=== PATIENT | male | born 1960 | race Caucasian/White ===

== ENCOUNTER 2017-06-23 11:10 | Emergency (ER) | payer MEDICAID ==
--- NOTE | 2017-06-23 11:22 | Emergency Department Record ---
History of Present Illness - General Chief Complaint: Chest Pain Stated Complaint: CHEST AND BACK PAIN Time Seen by Provider: 06/23/17 11:22 Source: Patient Mode of Arrival: Ambulatory Limitations: No limitations - History of Present Illness Initial Comments: The patient is here due to having the acute onset of chest and back pain about 30 minutes prior to presenting to the ER. He describes the pain as a heaviness with radiation to the back between the shoulder blades. He has had mild nausea, dyspnea, and sweating. The patient states he has no hx of similar issues or problems. The patient does have a hx of heavy tobacco use but no HTN, DM or high cholesterol. MD Complaint: Chest pain Onset/Timin -: Minutes(s) Onset: During exertion Pain Location: Substernal Severity: Moderate Severity scale (1-10): 4 Quality: Aching, Dull, Heaviness, Sharp Consistency: Constant Improves With: Rest Treatments Prior to Arrival: None - Related Data Allergies Allergy/AdvReac Type Severity Reaction Status Date / Time No Known Drug Allergies Allergy Verified 06/23/17 11:20 Travel Screening - Travel/Exposure Within Last 30 Days Have you traveled within the last 30 days?: No - Travel/Exposure Within Last Year Have you traveled outside the [place] in the last year?: No - Additonal Travel Details Have you been exposed to anyone with a communicable illness?: No - Travel Symptoms Symptom Screening: None Past Medical History - SOCIAL HISTORY Smoking Status: Current every day smoker Alcohol Use: Rare Drug Use: Occasional Drug Use Detail:: Marijuana - RESPIRATORY Hx Respiratory Disorders: No - CARDIOVASCULAR Hx Cardio Disorders: No - NEURO Hx Neuro Disorders: No - GI Hx GI Disorders: No - Hx Genitourinary Disorders: No - ENDOCRINE Hx Endocrine Disorders: No - MUSCULOSKELETAL Hx Musculoskeletal Disorders: No - PSYCH Hx Psych Problems: No - HEMATOLOGY/ONCOLOGY Hx Hematology/Oncology Disorders: No Family Medical History Any Significant Family History?: Yes Physical Exam - General General Appearance: Alert, Oriented x3, Cooperative, Mild distress - Head Head exam: Atraumatic, Normocephalic, Normal inspection - Eye Eye exam: Normal appearance, PERRL - ENT Throat exam: Normal inspection. negative: Tonsillar erythema, Tonsillar exudate - Neck Neck exam: Normal inspection, Full ROM. negative: Tenderness - Respiratory Respiratory exam: Normal lung sounds bilaterally. negative: Respiratory distress - Cardiovascular Cardiovascular Exam: Regular rate, Normal rhythm, Normal heart sounds - GI/Abdominal GI/Abdominal exam: Soft, Normal bowel sounds. negative: Tenderness - Extremities Extremities exam: Normal inspection, Full ROM, Normal capillary refill, Other ( radial pulses 2+ and equal bilaterally.). negative: Tenderness Course Vital Signs 06/23/17 11:13 Pulse Rate 64 Respiratory 18 Rate Blood Pressure 118/78 Pulse Ox 100 - Reevaluation(s) Reevaluation #1: I did inform the patient he is having an inferior wall ID and he states he would like to go to [facility] for treatment. 06/23/17 11:31 Reevaluation #2: The patient is doing OK at this time. I did discuss the case with Dr. Lockhart at [facility] and he does accept the patient. He would like him to go to the ER first and then the medical laboratory technologist. 06/23/17 11:37 Reevaluation #3: I did discuss the case with Dr. Butler in the ER at [facility] and she does accept him to [facility] first. 06/23/17 11:42 Medical Decision Making - Data Complexity MDM Data: Labs Ordered and/or Reviewed, X-Ray Ordered and/or Reviewed, EKG Ordered and/or Reviewed - Lab Data Result diagrams: 06/23/17 11:30 06/23/17 11:30 - EKG Data EKG: ST Elevation ID (STEMI) (Inferior wall.) - Radiology Data Radiology results: Report reviewed (CXR: No infiltrates, poss pulm vasc congestion) Disposition Disposition: Transfer Clinical Impression: Acute myocardial infarction Qualifiers: Myocardial infarction ST status: ST elevation myocardial infarction Involved coronary artery: right coronary artery Qualified Code(s): I21.11 - ST elevation (STEMI) myocardial infarction involving right coronary artery Disposition: Acute Care Hospital Transfer Transfer To: [facility]. Reason For Transfer: Acute ID. Accepting Physician: Luke Time Discussed w/Accepting Physician: 11:43 Condition: (2) Stable Forms: Patient Portal Access Time of Disposition: 11:43 Quality - Quality Measures Quality Measures: N/A - Blood Pressure Screening View Details: Yes Does Patient Have Any of the Following: No Blood Pressure Classification: Normal BP Reading Systolic Measurement: 118 Diastolic Measurement: 78 Screening for High Blood Pressure: < Normal BP, F/U Not Required > [G8783]
[2017-06-23] MEDS ORDERED: ASPIRIN 81 MG CHEWABLE TABLET PO ONE (11:23)
[2017-06-23] MEDS ORDERED: MORPHINE SULFATE 5 MG/ML PFS IVP ONE ×2 (11:23→11:50)
[2017-06-23] MEDS ORDERED: HEPARIN SODIUM 1000 UNIT/1 ML 10ML VIAL IVP ONE (11:24)
[2017-06-23] MEDS ORDERED: 0.9 % SODIUM CHLORIDE 1,000 ML BAG IV ONE (11:29)
[2017-06-23 11:41] LABS: BASO % 0.3 % (0-6); EOS % 1.1 % (0-6); GRAN % 64.6 % (47-80); HEMATOCRIT 44.6 % (42.0-52.0); HEMOGLOBIN 15.9 gm/dl (14.0-18.0); LYMPH % 25.7 % (16-45); MEAN CELL VOLUME 91.4 fl (81-97); MEAN CORPUSCULAR HEMOGLOBIN 32.6 pg (27-33); MEAN CORPUSCULAR HGB CONC 35.7 g/dl (32-36); MEAN PLATELET VOLUME 9.4 fl (7.4-10.4); MONO % 8.3 % (0-9); PLATELET COUNT 387 K/uL (130-400); RED BLOOD COUNT 4.88 M/uL (4.40-5.70); RED CELL DISTRIBUTION WIDTH 13.1 % (11.5-14.5); WHITE BLOOD COUNT W/O DIFF 12.4 K/uL (4.2-12.2)
[2017-06-23] MEDS ORDERED: NITROGLYCERIN/D5W 50 MG/250 ML ML IV SCH (11:45)
[2017-06-23] MEDS ORDERED: HEPARIN SODIUM/D5W 25,000 UNITS/500 ML BAG IV SCH (11:45)
[2017-06-23 11:55] LABS: INR 0.95; PARTIAL THROMBOPLASTIN TIME 25.2 SECONDS (24.5-39.1); PROTHROMBIN TIME (PATIENT) 10.3 SECONDS (9.5-12.1)
[2017-06-23 12:12] LABS: BLOOD UREA NITROGEN 17 mg/dL (6-20); CREATININE 0.8 mg/dL (0.7-1.2); EST GLOMERULAR FILTRATION RATE > 60 mL/min; GLUCOSE,RANDOM 136 mg/dL (74-109)
[2017-06-23 12:17] LABS: CKMB 10.4 ng/mL (<6.73)
[2017-06-23 12:25] LABS: CREATINE PHOSPHOKINASE 100 U/L (39-308)
--- NOTE | 2017-06-24 18:17 | RADIOLOGY REPORT ---
EXAM: CHEST AP or PA ONLY HISTORY: DIFFICULTY IN BREATHING. TECHNIQUE: A portable AP upright view of the chest was performed. FINDINGS: Heart size is normal. There is mild pulmonary vascular congestion. No infiltrate or pleural effusion. IMPRESSION: MILD PULMONARY VASCULAR CONGESTION. OTHERWISE NEGATIVE. JOB NUMBER: [id number] MTDD
== END 2017-06-23 11:51 | disposition short-term general hospital (02) ==
LOC: ER 11:10
DX: I21.11 ST elevation (STEMI) myocardial infarction involving right coronary artery (principal); R06.00 Dyspnea, unspecified; R11.0 Nausea; F17.210 Nicotine dependence, cigarettes, uncomplicated
CPT/HCPCS: 99285 ×2; 96374; 96375; 82550; 85025; 85730; 85610; 82553; 80048; 84484; 71010; 93005; 93010; J2270; J7030

== ENCOUNTER 2018-02-23 12:50 | Emergency (ER) | payer MEDICAID ==
--- NOTE | 2018-02-23 13:26 | Emergency Department Record ---
History of Present Illness - General Chief complaint: Nausea, Vomiting, Diarrhea Stated complaint: VOMITING, PIMARY SENT OVER FOR DEHYDRATION Time Seen by Provider: 02/23/18 13:24 Source: Patient Mode of Arrival: Ambulatory Limitations: No limitations - History of Present Illness Initial comments: The patient is here due to a 3 day hx of weakness, nausea, fatigue and body aches. He did have a fever last evening per his . He denies any Cp, SOB, WILLY , or sweating. The patient has been outside fishing on [place] for the last 2 days in the extreme heat and feels he may have heat exhaustion. There has been no vomiting, diarrhea, or BENOIT. MD complaint: Nausea Onset/Timin -: Days(s) Associated Abdominal Pain: No Consistency: Constant Improves with: None Worsens with: None Associated Symptoms: Fever/chills, Nausea/vomiting, Weakness - Related Data Home Medications Medication Instructions Recorded Confirmed Last Taken Aspirin [Aspir-Low] 81 mg PO DAILY 02/23/18 02/23/18 02/23/18 Atorvastatin Calcium [Lipitor] 20 mg PO DAILY 02/23/18 02/23/18 02/23/18 Clopidogrel Bisulfate [Plavix] 75 mg PO DAILY 02/23/18 02/23/18 02/23/18 Lisinopril 2.5 mg PO DAILY 02/23/18 02/23/18 02/23/18 Nitroglycerin [Nitrostat] 0.3 mg SL ASDIR 02/23/18 02/23/18 Unknown Allergies Allergy/AdvReac Type Severity Reaction Status Date / Time No Known Drug Allergies Allergy Verified 02/23/18 13:22 Travel Screening - Travel/Exposure Within Last 30 Days Have you traveled within the last 30 days?: No - Travel/Exposure Within Last Year Have you traveled outside the [place] in the last year?: No - Additonal Travel Details Have you been exposed to anyone with a communicable illness?: No - Travel Symptoms Symptom Screening: None Review of Systems Constitutional: Reports: Malaise. Denies: Chills, Fever Eyes: Denies: Eye discharge ENT: Denies: Congestion Respiratory: Denies: Cough, Dyspnea Past Medical History - SOCIAL HISTORY Smoking Status: Current every day smoker Alcohol Use: None Drug Use: None - RESPIRATORY Hx Respiratory Disorders: No - CARDIOVASCULAR Hx Cardio Disorders: No - NEURO Hx Neuro Disorders: No - GI Hx GI Disorders: No - Hx Genitourinary Disorders: No - ENDOCRINE Hx Endocrine Disorders: No - MUSCULOSKELETAL Hx Musculoskeletal Disorders: No - PSYCH Hx Psych Problems: No - HEMATOLOGY/ONCOLOGY Hx Hematology/Oncology Disorders: No Family Medical History Any Significant Family History?: No Physical Exam - General General Appearance: Alert, Oriented x3, Cooperative, No acute distress - Head Head exam: Atraumatic, Normocephalic, Normal inspection - Eye Eye exam: Normal appearance, PERRL, EOMI - ENT Throat exam: Normal inspection. negative: Tonsillar erythema, Tonsillar exudate - Neck Neck exam: Normal inspection, Full ROM. negative: Tenderness - Respiratory Respiratory exam: Normal lung sounds bilaterally. negative: Respiratory distress - Cardiovascular Cardiovascular Exam: Regular rate, Normal rhythm, Normal heart sounds - GI/Abdominal GI/Abdominal exam: Soft, Normal bowel sounds. negative: Tenderness - Extremities Extremities exam: Normal inspection, Full ROM, Normal capillary refill. negative: Tenderness - Neurological Neurological exam: Alert, Normal gait. negative: Abnormal gait, Motor sensory deficit - Skin Skin exam: negative: Rash Course Vital Signs 02/23/18 13:17 Temperature 99.0 F Pulse Rate 68 Respiratory 20 Rate Blood Pressure 99/66 Pulse Ox 97 - Reevaluation(s) Reevaluation #1: The patient is doing a lot better at this time. He has had 2 liters of IVF's and is drinking water well and feels MUCH better. He no longer is nauseated and is very hungry now. There is no BENOIT, neck pain, cough, sob, or any dysuria. He is to rest and increase his fluid intake and see his PCP later this week if needed. 02/23/18 16:17 Medical Decision Making - Data Complexity MDM Data: Labs Ordered and/or Reviewed - Lab Data Result diagrams: 02/23/18 13:48 02/23/18 13:48 Disposition Disposition: Discharge Clinical Impression: Heat exhaustion Qualifiers: Encounter type: initial encounter Qualified Code(s): T67.5XXA - Heat exhaustion , unspecified, initial encounter Disposition: Home, Self-Care Condition: (2) Stable Instructions: Heat Exhaustion (ED) Additional Instructions: Drink plenty of fluids and rest for the next 2 days. Please see your family doctor if not better later this week. Return to the ER for any worsening symptoms, temp > 101.5, vomiting, BENOIT, or confusion. Forms: Patient Portal Access Time of Disposition: 16:19 Quality - Quality Measures Quality Measures: N/A - Blood Pressure Screening View Details: Yes Does Patient Have Any of the Following: No Blood Pressure Classification: Normal BP Reading Systolic Measurement: 111 Diastolic Measurement: 66 Screening for High Blood Pressure: < Normal BP, F/U Not Required > [G8783]
[2018-02-23] MEDS ORDERED: ONDANSETRON HCL IV 4 MG/2 ML VIAL IV ONE (13:39)
[2018-02-23] MEDS ORDERED: 0.9 % SODIUM CHLORIDE 1,000 ML BAG IV ONE ×3 (13:39→14:32)
[2018-02-23 13:52] LABS: BASO % 0.1 % (0-6); EOS % 0.2 % (0-6); GRAN % 78.9 % (47-80); HEMATOCRIT 43.9 % (42.0-52.0); HEMOGLOBIN 15.1 gm/dl (14.0-18.0); LYMPH % 9.4 % (16-45); MEAN CELL VOLUME 92.6 fl (81-97); MEAN CORPUSCULAR HEMOGLOBIN 31.9 pg (27-33); MEAN CORPUSCULAR HGB CONC 34.4 g/dl (32-36); MEAN PLATELET VOLUME 9.3 fl (7.4-10.4); MONO % 11.4 % (0-9); PLATELET COUNT 249 K/uL (130-400); RED BLOOD COUNT 4.74 M/uL (4.40-5.70); RED CELL DISTRIBUTION WIDTH 12.8 % (11.5-14.5); WHITE BLOOD COUNT W/O DIFF 14.9 K/uL (4.2-12.2)
[2018-02-23 14:05] LABS: BLOOD UREA NITROGEN 14 mg/dL (6-20); CREATININE 0.6 mg/dL (0.7-1.2); EST GLOMERULAR FILTRATION RATE > 60 mL/min
[2018-02-23 14:06] LABS: TOTAL PROTEIN 7.1 g/dL (6.6-8.7)
[2018-02-23 14:08] LABS: GLUCOSE,RANDOM 90 mg/dL (74-109)
[2018-02-23 14:11] LABS: ALBUMIN 3.8 g/dL (4.0-5.0); ALKALINE PHOSPHATASE 70 U/L (40-129); ALT/SGPT 9 U/L (<41); AST/SGOT 16 U/L (10.0-50.0); BILIRUBIN,DIRECT < 0.2 mg/dL (0-0.3)
[2018-02-23] MEDS ORDERED: ACETAMINOPHEN 325 MG TAB PO ONE (14:33)
[2018-02-23 15:31] LABS: URINE APPEARANCE CLEAR; URINE BILIRUBIN SMALL (NEGATIVE); URINE BLOOD SMALL (NEGATIVE); URINE COLOR ORANGE; URINE GLUCOSE (UA) NEGATIVE (NEGATIVE); URINE KETONE 40 mg/dL (NEGATIVE); URINE LEUKOCYTE ESTERASE NEGATIVE (NEGATIVE); URINE NITRITE NEGATIVE (NEGATIVE)
[2018-02-23 15:46] LABS: URINE BACTERIA NONE SEEN; URINE MUCUS LIGHT; URINE RBC 0 - 2 (NONE SEEN); URINE SQUAMOUS EPITHELIAL CELL 0 - 2 /hpf; URINE WBC 0 - 2 (0-2/hpf)
== END 2018-02-23 16:27 | disposition home or self-care (01) ==
LOC: ER 12:50
DX: T67.5XXA Heat exhaustion, unspecified, initial encounter (principal); R53.83 Other fatigue; R11.0 Nausea; R53.1 Weakness; X30.XXXA Exposure to excessive natural heat, initial encounter; F17.210 Nicotine dependence, cigarettes, uncomplicated; Y92.828 Other wilderness area as the place of occurrence of the external cause
CPT/HCPCS: 99284 ×2; 96374; 96361; 85025; 80076; 80048; 81001; J2405; J7030

== ENCOUNTER 2018-02-26 05:53 | Emergency (ER) | payer MEDICAID ==
[2018-02-26] MEDS ORDERED: 0.9 % SODIUM CHLORIDE 1,000 ML BAG IV ONE ×2 (06:18→07:14)
[2018-02-26] MEDS ORDERED: ONDANSETRON HCL IV 4 MG/2 ML VIAL IVP ONE ×2 (06:25→08:07)
--- NOTE | 2018-02-26 06:27 | Emergency Department Record ---
History of Present Illness - General Chief Complaint: Fever Stated Complaint: FEVER Time Seen by Provider: 02/26/18 06:10 Source: Patient Mode of Arrival: Ambulatory Limitations: No limitations - History of Present Illness Initial Comments: pt was here 4 days ago for heat exhaustion. he had had a fever the night before. hehad 2 ltrs of fluid and felt better. since then he has continued to run fevers and feel weak. he has a lot of gas and rumbling in his abd but no pain. he has no cough, no diarrhea, no problems w urination. Complaint: Fever, Malaise Onset/Timin -: Days(s) Associated Symptoms: Denies other symptoms, Abdominal pain Treatments Prior to Arrival: Acetaminophen - Related Data Allergies Allergy/AdvReac Type Severity Reaction Status Date / Time No Known Drug Allergies Allergy Verified 02/23/18 13:22 Travel Screening - Travel/Exposure Within Last 30 Days Have you traveled within the last 30 days?: No - Travel/Exposure Within Last Year Have you traveled outside the [place] in the last year?: No - Additonal Travel Details Have you been exposed to anyone with a communicable illness?: No - Travel Symptoms Symptom Screening: None Review of Systems Reviewed: No additional complaints except as noted below Constitutional: Reports: As per HPI, Fever, Malaise, Weakness. Denies: Chills, Night sweats, Weight change Eyes: Reports: As per HPI. Denies: Eye discharge, Eye pain, Photophobia, Vision change ENT: Reports: As per HPI. Denies: Congestion, Dental pain, Ear pain, Epistaxis , Hearing loss, Throat pain Respiratory: Reports: As per HPI. Denies: Cough, Dyspnea, Hemoptysis, Stridor, Wheezes Cardiovascular: Reports: As per HPI. Denies: Arrhythmia, Chest pain, Dyspnea on exertion, Edema, Murmurs, Orthopnea, Palpitations, Paroxysmal nocturnal dyspnea, Rheumatic Fever, Syncope Endocrine: Reports: As per HPI. Denies: Fatigue, Heat or cold intolerance, Polydipsia, Polyuria Gastrointestinal: Reports: As per HPI, Nausea. Denies: Abdominal pain, Constipation, Diarrhea, Hematemesis, Hematochezia, Melena, Vomiting Genitourinary: Reports: As per HPI. Denies: Dysuria, Frequency, Hematuria, Incontinence, Retention, Testicular pain, Testicular mass, Urgency Musculoskeletal: Reports: As per HPI. Denies: Arthralgia, Back pain, Gout, Joint swelling, Myalgia, Neck pain Skin: Reports: As per HPI. Denies: Bruising, Change in color, Change in hair/ nails, Lesions, Pruritus, Rash Neurological: Reports: As per HPI. Denies: Abnormal gait, Confusion, Headache, Numbness, Paresthesias, Seizure, Tingling, Tremors, Vertigo, Weakness Psychiatric: Reports: As per HPI. Denies: Anxiety, Auditory hallucinations, Depression, Homicidal thoughts, Suicidal thoughts, Visual hallucinations Hematological/Lymphatic: Reports: As per HPI. Denies: Anemia, Blood Clots, Easy bleeding, Easy bruising, Swollen glands Past Medical History - SOCIAL HISTORY Smoking Status: Current every day smoker Alcohol Use: None Drug Use: None - RESPIRATORY Hx Respiratory Disorders: No - CARDIOVASCULAR Hx Cardio Disorders: No - NEURO Hx Neuro Disorders: No - GI Hx GI Disorders: No - Hx Genitourinary Disorders: No - ENDOCRINE Hx Endocrine Disorders: No - MUSCULOSKELETAL Hx Musculoskeletal Disorders: No - PSYCH Hx Psych Problems: No - HEMATOLOGY/ONCOLOGY Hx Hematology/Oncology Disorders: No Family Medical History Any Significant Family History?: No Physical Exam - General General Appearance: Alert, Oriented x3, Cooperative, Mild distress - Head Head exam: Normal inspection - Eye Eye exam: Normal appearance, PERRL, EOMI Pupils: Normal accommodation - ENT ENT exam: Normal exam, Mucous membranes moist, Normal external ear exam, Normal orophraynx Ear exam: Normal external inspection. negative: External canal tenderness Nasal Exam: Normal inspection. negative: Discharge, Sinus tenderness Mouth exam: Normal external inspection, Tongue normal Teeth exam: Normal inspection. negative: Dental caries Throat exam: Normal inspection. negative: Tonsillar erythema, Tonsillar exudate - Neck Neck exam: Normal inspection, Full ROM. negative: Tenderness - Respiratory Respiratory exam: Normal lung sounds bilaterally. negative: Respiratory distress - Cardiovascular Cardiovascular Exam: Regular rate, Normal rhythm, Normal heart sounds - GI/Abdominal GI/Abdominal exam: Soft, Normal bowel sounds. negative: Tenderness - Rectal Rectal exam: Deferred - exam: Deferred - Extremities Extremities exam: Normal inspection, Full ROM, Normal capillary refill. negative: Tenderness - Back Back exam: Reports: Normal inspection, Full ROM. Denies: Muscle spasm, Rash noted, Tenderness - Neurological Neurological exam: Alert, CN II-XII intact, Normal gait, Oriented X3 - Psychiatric Psychiatric exam: Normal affect, Normal mood - Skin Skin exam: Dry, Intact, Normal color, Warm Course Vital Signs 02/26/18 02/26/18 05:54 06:04 Temperature 99.7 F H Pulse Rate 82 Respiratory 20 Rate Blood Pressure 112/62 Pulse Ox 95 - Reevaluation(s) Reevaluation #1: 02/26/18 06:27 care is being assumed by dr spear Disposition Quality - Blood Pressure Screening Does Patient Have Any of the Following: No Blood Pressure Classification: Normal BP Reading Systolic Measurement: 112 Diastolic Measurement: 62 Screening for High Blood Pressure: < Normal BP, F/U Not Required > [G8783]
--- NOTE | 2018-02-26 06:38 | Emergency Department Record ---
History of Present Illness - General Chief Complaint: Fever Stated Complaint: FEVER Time Seen by Provider: 02/26/18 06:10 Source: Patient, Family Mode of Arrival: Ambulatory Limitations: No limitations - History of Present Illness Initial comments: 57 yo male patient signed over at turn over by Dr Mitchell. The patient reports not feeling well since last Friday. He reports nausea, poor appetite, fevers, chills, and feels fatigued. He has only vomited one time. No headache, sore throat or swollen glands. He does smoke and has his "typical" cough. No abdominal but if he tries to eat he becomes nauseated and has cramps. No dysuria. No rashes except a few "bug bites". No back pain, muscle pain. His TMax has been 103. He had Tylenol prior to arrival and is now afebrile. -: Week(s) (1) Location: Other (Generalized weakness) Quality: Other Consistency: Intermittent Improves with: Other (Tylenol) Worsens with: None Associated Symptoms: Cough, Fever/chills, Loss of appetite, Malaise, Nausea/ vomiting, Weakness - [place] Coma Scale Eye Response: (4) Open spontaneously Motor Response: (6) Obeys commands Verbal Response: (5) Oriented [place] Total: 15 - Related Data Previous Rx's Medication Instructions Recorded Azithromycin [Zithromax] 250 mg PO DAILY #4 tab 02/26/18 Ondansetron [Zofran Odt] 4 mg PO Q8H #15 tab.rapdis 02/26/18 Allergies Allergy/AdvReac Type Severity Reaction Status Date / Time No Known Drug Allergies Allergy Verified 02/23/18 13:22 Travel Screening - Travel/Exposure Within Last 30 Days Have you traveled within the last 30 days?: No - Travel/Exposure Within Last Year Have you traveled outside the [place] in the last year?: No - Additonal Travel Details Have you been exposed to anyone with a communicable illness?: No - Travel Symptoms Symptom Screening: None Review of Systems ROS unobtainable: Other (The ROS is as documented by Dr Mitchell) Constitutional: Reports: As per HPI, Fever, Malaise, Weakness. Denies: Night sweats, Weight change Eyes: Reports: As per HPI. Denies: Eye discharge, Eye pain, Photophobia, Vision change ENT: Reports: As per HPI. Denies: Congestion, Dental pain, Ear pain, Epistaxis , Hearing loss, Throat pain Respiratory: Reports: As per HPI. Denies: Cough, Dyspnea, Hemoptysis, Stridor, Wheezes Cardiovascular: Reports: As per HPI. Denies: Arrhythmia, Chest pain, Dyspnea on exertion, Edema, Murmurs, Orthopnea, Palpitations, Paroxysmal nocturnal dyspnea, Rheumatic Fever, Syncope Endocrine: Reports: As per HPI. Denies: Fatigue, Heat or cold intolerance, Polydipsia, Polyuria Gastrointestinal: Reports: As per HPI, Nausea. Denies: Abdominal pain, Constipation, Diarrhea, Hematemesis, Hematochezia, Melena, Vomiting Genitourinary: Reports: As per HPI. Denies: Dysuria, Frequency, Hematuria, Incontinence, Retention, Testicular pain, Testicular mass, Urgency Musculoskeletal: Reports: As per HPI. Denies: Arthralgia, Back pain, Gout, Joint swelling, Myalgia, Neck pain Skin: Reports: As per HPI. Denies: Bruising, Change in color, Change in hair/ nails, Lesions, Pruritus, Rash Neurological: Reports: As per HPI. Denies: Abnormal gait, Confusion, Headache, Numbness, Paresthesias, Seizure, Tingling, Tremors, Vertigo, Weakness Psychiatric: Reports: As per HPI. Denies: Anxiety, Auditory hallucinations, Depression, Homicidal thoughts, Suicidal thoughts, Visual hallucinations Hematological/Lymphatic: Reports: As per HPI. Denies: Anemia, Blood Clots, Easy bleeding, Easy bruising, Swollen glands Past Medical History - SOCIAL HISTORY Smoking Status: Current every day smoker Alcohol Use: None Drug Use: None - RESPIRATORY Hx Respiratory Disorders: No - CARDIOVASCULAR Hx Cardio Disorders: No - NEURO Hx Neuro Disorders: No - GI Hx GI Disorders: No - Hx Genitourinary Disorders: No - ENDOCRINE Hx Endocrine Disorders: No - MUSCULOSKELETAL Hx Musculoskeletal Disorders: No - PSYCH Hx Psych Problems: No - HEMATOLOGY/ONCOLOGY Hx Hematology/Oncology Disorders: No Family Medical History Any Significant Family History?: No Physical Exam - General General Appearance: Alert, Oriented x3, Cooperative, No acute distress, Other ( Well appearing, very good historian) Limitations: No limitations - Head Head exam: Atraumatic, Normocephalic, Normal inspection - Eye Eye exam: Normal appearance, PERRL. negative: Conjunctival injection, Scleral icterus - ENT ENT exam: Normal exam, Mucous membranes moist, Normal orophraynx Ear exam: Normal external inspection Nasal Exam: Normal inspection Mouth exam: Normal external inspection Teeth exam: Normal inspection Throat exam: Normal inspection. negative: Tonsillar erythema, Tonsillomegaly, Tonsillar exudate, R peritonsillar mass, L peritonsillar mass - Neck Neck exam: Normal inspection, Full ROM, Other (Supple, full ROM). negative: Lymphadenopathy, Meningismus, Tenderness - Respiratory Respiratory exam: Normal lung sounds bilaterally. negative: Respiratory distress - Cardiovascular Cardiovascular Exam: Regular rate, Normal rhythm, Normal heart sounds. negative : Diastolic murmur, Systolic murmur Peripheral Pulses: 2+: Radial (R), Radial (L) - GI/Abdominal GI/Abdominal exam: Soft, Normal bowel sounds. negative: Distended, Guarding, Tenderness - Rectal Rectal exam: Deferred - exam: Deferred - Extremities Extremities exam: Normal inspection, Full ROM, Normal capillary refill. negative: Pedal edema, Tenderness - Back Back exam: Denies: CVA tenderness (R), CVA tenderness (L) - Neurological Neurological exam: Alert, Oriented X3 - Psychiatric Psychiatric exam: Normal affect, Normal mood - Skin Skin exam: Other (3 5mm papules consistent with "bug bites" on the right abdomen and chest. No cellulitis). negative: Cyanosis, Diaphoretic, Erythema, Mottled Course Vital Signs 02/26/18 02/26/18 05:54 06:04 Temperature 99.7 F H Pulse Rate 82 Respiratory 20 Rate Blood Pressure 112/62 Pulse Ox 95 - Reevaluation(s) Reevaluation #1: 02/26/18 06:40 The case was signed out by Dr Mitchell The EMR was reviewed from the prior visit The vitals were reviewed. No acute changes 02/26/18 06:56 The CBC was reviewed The WBC count is 16.1 with 82%N. The CMP was reviewed. AG 20 with HCO3 20 otherwise normal LFT and Renal function. 02/26/18 07:00 The lactic acid is normal 02/26/18 08:49 The CXR was reviewed. Subtle LLL infiltrate consistent with pneumonia Antibiotics ordered. 02/26/18 09:[address] scan of the abdomen demonstrated a dense consolidation consistent with pneumonia. The remainder of the abdomen is negative. 02/26/18 09:16 The patient is not vomiting, no hypoxia, no tachycardia, normal blood pressure We discussed the treatment of antibiotics and being able to stay hydrated He is comfortable with DC home vs Observation but observation was offered We discussed the results of the tests and questions were answered. We discussed at length reasons to immediately return to the ED as well as close follow up. The patient will call the PCP for close follow up of this ED visit He is comfortable with trying to hydration at home and will return if this is not working well. Very reliable patient and spouse. 02/26/18 09:24 Medical Decision Making - Lab Data Result diagrams: 02/26/18 06:30 02/26/18 06:30 Disposition Disposition: Discharge Clinical Impression: Dehydration Pneumonia Qualifiers: Pneumonia type: due to unspecified organism Laterality: left Lung location: lower lobe of lung Qualified Code(s): J18.1 - Lobar pneumonia, unspecified organism Disposition: Home, Self-Care Condition: (1) Good Instructions: Community Acquired Pneumonia (ED) Additional Instructions: Call your doctor today to schedule a recheck of your symptoms after this ED visit Review the ED record and any tests done in the ED with your doctor Return to the ED if worse or any new concerns. Hydrate as we discussed with small frequent amount of fluids gradually increasing as your feel better Immediately return if you are short of breath, concerned about dehydration Tylenol as needed for fever Prescriptions: Azithromycin [Zithromax] 250 mg PO DAILY #4 tab Ondansetron [Zofran Odt] 4 mg PO Q8H #15 tab.rapdis Forms: Patient Portal Access Time of Disposition: 09:40 Quality - Quality Measures Quality Measures: N/A - Blood Pressure Screening Does Patient Have Any of the Following: Active Dx of HTN Blood Pressure Classification: Normal BP Reading Systolic Measurement: 112 Diastolic Measurement: 62 Screening for High Blood Pressure: Patient Exclusion, Hx of HTN [G9744]
[2018-02-26 06:42] LABS: HEMATOCRIT 40.9 % (42.0-52.0); HEMOGLOBIN 14.6 gm/dl (14.0-18.0); MEAN CELL VOLUME 91.1 fl (81-97); MEAN CORPUSCULAR HEMOGLOBIN 32.5 pg (27-33); MEAN CORPUSCULAR HGB CONC 35.7 g/dl (32-36); MEAN PLATELET VOLUME 9.4 fl (7.4-10.4); PLATELET COUNT 227 K/uL (130-400); RED BLOOD COUNT 4.49 M/uL (4.40-5.70); RED CELL DISTRIBUTION WIDTH 12.6 % (11.5-14.5); WHITE BLOOD COUNT W/O DIFF 16.1 K/uL (4.2-12.2)
[2018-02-26 06:51] LABS: BLOOD UREA NITROGEN 15 mg/dL (6-20); CREATININE 0.8 mg/dL (0.7-1.2); EST GLOMERULAR FILTRATION RATE > 60 mL/min; TOTAL PROTEIN 7.1 g/dL (6.6-8.7)
[2018-02-26 06:53] LABS: GLUCOSE,RANDOM 108 mg/dL (74-109)
[2018-02-26 06:56] LABS: ALB/GLOB RATIO 0.9 (1.1-1.8); ALBUMIN 3.4 g/dL (4.0-5.0); ALKALINE PHOSPHATASE 58 U/L (40-129); ALT/SGPT 9 U/L (<41); AST/SGOT 13 U/L (10.0-50.0)
[2018-02-26 07:22] LABS: ERYTHROCYTE SEDIMENTATION RATE 60 mm/hr (0-20)
[2018-02-26] MEDS ORDERED: ACETAMINOPHEN 500 MG TABLET PO ONE (08:12)
[2018-02-26] MEDS ORDERED: AZITHROMYCIN 500 MG TABLET PO ONE (08:47)
[2018-02-26] MEDS ORDERED: CEFTRIAXONE SODIUM 1 GM in 0.9 % SODIUM CHLORIDE 100ML 100 ML IVPB ONE (08:47)
[2018-02-26 09:09] LABS: URINE APPEARANCE CLEAR; URINE BILIRUBIN SMALL (NEGATIVE); URINE BLOOD MODERATE (NEGATIVE); URINE COLOR YELLOW; URINE GLUCOSE (UA) NEGATIVE (NEGATIVE); URINE KETONE 40 mg/dL (NEGATIVE); URINE LEUKOCYTE ESTERASE NEGATIVE (NEGATIVE); URINE NITRITE NEGATIVE (NEGATIVE)
[2018-02-26 09:16] LABS: URINE EPITHELIAL CELLS 0 - 2 (FEW); URINE WBC NONE SEEN (0-2/hpf)
[2018-02-26] MEDS ORDERED: IBUPROFEN 600 MG TABLET PO ONE (09:42)
--- NOTE | 2018-02-27 14:10 | RADIOLOGY REPORT ---
EXAM: CHEST, TWO VIEWS HISTORY: DIFFICULTY IN BREATHING. TECHNIQUE: Two views of the chest were performed. Comparison: 06/23/17. FINDINGS: The heart size is normal. No pulmonary vascular congestion. Subtle left lower lobe infiltrate. No pleural effusion. The osseous structures are normal. IMPRESSION: SUBTLE LEFT LOWER LOBE NODULAR INFILTRATE. FOLLOW-UP UNTIL RESOLUTION IS RECOMMENDED. JOB NUMBER: [id number] MTDD
--- NOTE | 2018-02-27 14:30 | CT SCAN REPORT ---
EXAM: CT OF THE ABDOMEN AND PELVIS WITH CONTRAST HISTORY: NAUSEA, STOMACH PAIN. TECHNIQUE: Sequential axial images were obtained from the diaphragms through the iliac crest after intravenous administration of 100 ml of Omnipaque 300 contrast material. FINDINGS: There is dense consolidation in the left lower lobe. There is scarring in both lung bases. The liver appears homogeneous. No gallstones or ductal dilatation. The pancreas and spleen appear normal. The adrenal glands and kidneys appear normal. The small bowel appears normal. The appendix is visualized and appears normal. The urinary bladder appears normal. The osseous structures are normal. IMPRESSION: DENSE CONSOLIDATION IN THE LEFT LOWER LOBE. FINDINGS ARE LIKELY RELATED TO PNEUMONIA. THE APPENDIX IS VISUALIZED AND APPEARS NORMAL. JOB NUMBER: [id number] MTDD
== END 2018-02-26 09:47 | disposition home or self-care (01) ==
LOC: ER 05:53
DX: J18.1 Lobar pneumonia, unspecified organism (principal); E86.0 Dehydration; R11.0 Nausea; R53.1 Weakness; I10 Essential (primary) hypertension; F17.210 Nicotine dependence, cigarettes, uncomplicated
CPT/HCPCS: 99284 ×2; 96376; 96365; 96375; 96361; 83605; 85651; 80053; 81001; 85027; 71046; 74177; Q9967; J2405; J7030